=== PATIENT | male | born 1950 | race Caucasian/White ===

== ENCOUNTER 2018-02-08 06:50 | Day surgery (SDC) | payer BC ==
[2018-02-08] MEDS ORDERED: LIDOCAINE 2% MDV (20MG/ML) 20ML VIAL IV ONE (06:51)
[2018-02-08] MEDS ORDERED: PROPOFOL 10 MG/ML VIAL IV ONE (06:51)
[2018-02-08] MEDS ORDERED: FENTANYL PF 100MCG/2ML VIAL IV ONE (06:51)
[2018-02-08] MEDS ORDERED: MIDAZOLAM HCL 2MG/2ML VIAL IV ONE (06:51)
[2018-02-08] MEDS ORDERED: BUPIVACAINE 0.25% W/EPI MPF 30ML VIAL IVP ONE (06:51)
[2018-02-08] MEDS ORDERED: HYDROCODONE/APAP 5/325MG TABLET PO ONE (06:51)
[2018-02-08] MEDS ORDERED: DESFLURANE 240 ML BTL INH ONE (06:51)
[2018-02-08] MEDS ORDERED: CEFAZOLIN 2 Gram 2 GM/50 ML BAG IVPB ONE (06:51)
--- NOTE | 2018-02-09 15:11 | Operative Note ---
DATE OF SURGERY: 02/08/2018 Surgeon: Addy Alvarez DO PREOPERATIVE DIAGNOSIS: Incarcerated umbilical hernia. POSTOPERATIVE DIAGNOSIS: Incarcerated umbilical hernia. OPERATION: Open umbilical herniorrhaphy with mesh. Indication: The patient is a 67-year-old male who presented to the clinic with pain and bulging in his periumbilical region. On exam, he had incarcerated umbilical hernia. We discussed repair. Risks, benefits, and alternatives were discussed. Risks include bleeding, infection, acute or chronic pain, recurrence. He understood this fully. Therefore, consent was signed and questions answered. PROCEDURE: He was taken to the operating room and placed in a supine position. General anesthesia was administered per the department of anesthesia. The patient's abdomen was shaved of hair and prepped and draped in the usual fashion. Adequate timeout was performed. He did receive preoperative antibiotic. At this time, the periumbilical region was anesthetized with a total of 10 mL of 0.25% Sensorcaine with epinephrine. A 4 cm curvilinear infraumbilical incision was made. This was carried down to the anterior rectus fascia. Umbilical stalk was encircled and dissected free from the underlying hernia sac. Clean circumferential fascial edges were obtained. The hernia sac was then amputated and passed off the field. The hernia measured about 8 mm. At this time, a 4.[address] mesh was obtained. This was placed in intraperitoneal position. The upper skirt was sutured to the anterior rectus fascia with 2-0 Vicryl. The fascia was also closed with 0 Vicryl in interrupted fashion. The skin was closed with 3-0 and 4-0 Vicryl. The skin was tacked down to the stalk with 3-0 Vicryl prior to this, Dermabond was placed. He was taken to the recovery room in satisfactory condition. FINDINGS ON SURGERY: Incarcerated umbilical hernia containing preperitoneal fat. CC: DO TOM Case
== END 2018-02-08 10:06 | disposition home or self-care (01) ==
LOC: SUR 06:50
PROVIDERS: ATTEND Surgery
DX: K42.0 Umbilical hernia with obstruction, without gangrene (principal); E11.9 Type 2 diabetes mellitus without complications; Z79.4 Long term (current) use of insulin; E78.00 Pure hypercholesterolemia, unspecified; G47.33 Obstructive sleep apnea (adult) (pediatric)
CPT/HCPCS: 49587; 00840; J3010; J0690